=== PATIENT | female | born 1960 | race Caucasian/White ===

== ENCOUNTER → 2020-02-21 | Outpatient (CLI) | payer OTHER ==
[~2020-02-21] MED LIST: ASPI-485 PO; ATOR10TA PO; CHOL200042 PO; LISI10TA2 PO; METO25TA2 PO; METO50TA4 PO; POTA10CA PO; TRAM50TA PO
--- NOTE | 2020-02-21 14:31 | DIREP ---
PROCEDURE:US PELVIS COMPLETE COMPARISON:[facility], US, US PELVIS COMPLETE, 07/04/2019, 10:19 AM. INDICATIONS:RLQ PAIN R10.31 TECHNIQUE:Pelvic ultrasound using transabdominal technique. Endovaginal images were also obtained for better assessment of the uterus and adnexa. FINDINGS: LMP: postmenopausal UTERUS:Size is 7.2 x 2.5 x 4.1 cm. The myometrium is homogeneous. Multiple fibroids are visualized: (1) 1.1 x 0.9 x 1.8 cm, prior size 1.6 x 1.0 x 1.5 cm, (2) 0.9 x 0.6 x 1.0 cm, prior size 1.2 x 0.8 x 1.2 cm, and (3) 1.4 x 1.2 x 1.7 cm, prior size 1.9 x 1.4 x 1.9 cm. Nabothian cysts are noted. ENDOMETRIUM:Thickness is 0.5 cm. RIGHT OVARY:Normal appearance. 1.4 x 0.9 x 1.1 cm. LEFT OVARY:Normal appearance. 1.4 x 0.8 x 0.9 cm. CUL-DE-SAC:Normal. OTHER:Negative. CONCLUSION: 1. Leiomyomatous changes of the uterus similar to prior including an exophytic pedunculated fibroid in the right adnexa versus broad ligament fibroid. 2. Borderline endometrial thickening for a postmenopausal female. Dictated by: [facility] on 02/21/2020 at 02:13 PM bs
== END | disposition home or self-care (01) ==
LOC: RAD 12:13
PROVIDERS: ATTEND Obstetrics & Gynecology
DX: D39.8 Neoplasm of uncertain behavior of other specified female genital organs (principal); R93.89 Abnormal findings on diagnostic imaging of other specified body structures; R10.31 Right lower quadrant pain
CPT/HCPCS: 76830; 76856

== ENCOUNTER → 2020-02-29 | Outpatient (CLI) | payer OTHER ==
--- NOTE | 2020-02-29 16:13 | DIREP ---
PROCEDURE:XR ABDOMEN 2 VIEWS COMPARISON:[facility], CR, XRAY ABDOMEN 2VW, 05/03/2019, 02:31 PM. [facility], CR, XRAY ABDOMEN 2VW, 12/25/2017, 11:43 AM. [facility], CR, XRAY ABDOMEN 2VW, 04/28/2017, 01:37 PM. INDICATIONS:R10.11 RUQ PAIN TECHNIQUE:Flat and upright views of the abdomen are provided. FINDINGS: BOWEL GAS PATTERN:Normal. CALCIFICATIONS:No suspicious calcifications. Pelvic phleboliths noted. LUNG BASES:Clear. BONES:No aggressive osseous lesions. Dextro tilt of the lumbar spine. Degenerative change of the femoral acetabular joints. OTHER:Cholecystectomy clips. A metallic clip overlies the left upper quadrant. CONCLUSION: 1. Normal bowel gas pattern. Dictated by: Loi De Los Santos MD on 02/29/2020 at 04:11 PM
== END | disposition home or self-care (01) ==
LOC: RAD 15:12
PROVIDERS: ATTEND Nurse Practitioner Family
DX: R10.11 Right upper quadrant pain (principal)
CPT/HCPCS: 74019

== ENCOUNTER → 2020-03-07 | Outpatient (CLI) | payer OTHER ==
--- NOTE | 2020-03-07 15:09 | DIREP ---
PROCEDURE:ABDOMINAL ULTRASOUND COMPARISON:[facility], CT, CT CHEST W/CONTRAST, 08/03/2019, 11:17 AM. [facility], US, US ABDOMEN COMPLETE, 04/07/2018, 09:37 AM. [facility], CT, CT ABD/PELVIS W/WO, 03/23/2018, 11:11 AM. [facility], US, US ABDOMEN COMPLETE, 05/13/2017, 09:00 AM. [facility], US, US ABDOMEN LIMITED(SINGLE ORGAN-QUAD), 01/01/2017, 08:04 AM. [facility], US, US ABDOMEN LIMITED(SINGLE ORGAN-QUAD), 12/26/2015, 11:09 AM. INDICATIONS:R10.11 RUQ PAIN TECHNIQUE:High resolution sonographic examination was performed of the abdomen. FINDINGS: PANCREAS:Visualized portions of the pancreatic head, body and tail appear unremarkable. A portion of the pancreatic tail is partially obscured by bowel gas shadowing. LIVER:Enlarged. Increased hepatic echotexture consistent with hepatic steatosis. No focal hepatic lesion is identified. Hepatopetal flow in the portal vein. Normal spectral waveform on the portal vein. GALLBLADDER:The gallbladder is surgically absent. BILIARY:There is no biliary ductal dilatation. RIGHT KIDNEY:No hydronephrosis. A 1.8 x 1.4 x 1.5 cm exophytic cyst is identified in the upper pole. A 2.0 x 1.3 x 1.8 cm exophytic cyst is identified adjacent in the upper pole, (previously 2.2 x 2.1 x 1.9 cm). A 1.8 x 1.3 x 1.1 cm parapelvic cyst or mild intrarenal pelvis dilation is identified. Tissue without increased through transmission was also measured in the interpolar region, favor related to parenchymal lobulation demonstrate previous cross-sectional imaging. LEFT KIDNEY:No hydronephrosis. A 1.2 x 0.9 x 1.2 cm cortical cyst is identified in the lower pole. SPLEEN:Normal. AORTA:The visualized portions appear unremarkable. IVC:Intrahepatic portions unremarkable. OTHER:Negative. No ascites is identified. AORTA (mid):1.6 x 1.6 cm CBD:0.7 cm LIVER:18.6 cm in length. RIGHT KIDNEY:11.6 x 5.5 x 5.5 cm LEFT KIDNEY:10.5 x 7.0 x 4.8 cm SPLEEN:10.9 x 9.1 x 5.5 cm CONCLUSION: 1. Hepatomegaly. Hepatic steatosis. 2. Bilateral renal cysts, benign appearing. Dictated by: JUAN Physician on 03/07/2020 at 12:39 PM ac
== END | disposition home or self-care (01) ==
LOC: RAD 10:04
PROVIDERS: ATTEND Nurse Practitioner Family
DX: K76.0 Fatty (change of) liver, not elsewhere classified (principal); R16.0 Hepatomegaly, not elsewhere classified; N28.1 Cyst of kidney, acquired
CPT/HCPCS: 76700

== ENCOUNTER → 2020-03-13 | Outpatient (CLI) | payer OTHER ==
--- NOTE | 2020-03-13 14:05 | DIREP ---
PROCEDURE:CT ABDOMEN W/ CONTRAST COMPARISON:[facility], CT, CT ABD/PELVIS W/WO, 03/23/2018, 11:11 AM. INDICATIONS:N28.1 CYST OF KIDNEY TECHNIQUE:Axial images were created through the abdomen with non-ionic intravenous contrast material. No oral contrast was administered. Sagittal and coronal reconstructions were performed from source images. FINDINGS: LUNG BASES:Normal. No visible pulmonary or pleural disease. LIVER:Mild diffuse decreased attenuation is again seen throughout the liver. BILIARY:Postcholecystectomy changes are seen. PANCREAS:Normal. No lesion, fluid collection, ductal dilatation, or atrophy. SPLEEN:Normal. No enlargement or focal lesion. ADRENALS:Normal. No mass or enlargement. URINARY TRACT:A 2.7 cm cyst is seen in the upper pole of the right kidney previously measuring 2 cm. An 11 mm cortical cyst is noted posteriorly in the left kidney. Mild cortical scarring is again seen of both kidneys. AORTA/VASCULAR:Vascular calcification is seen of the abdominal aorta without aneurysmal dilatation. RETROPERITONEUM:Normal. No mass or adenopathy. BOWEL/MESENTERY:Normal. There is no intestinal obstruction, free fluid, free air or mesenteric inflammatory changes. ABDOMINAL WALL:Normal. No mass or hernia. PELVIC ORGANS:The pelvis was not imaged. 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 OTHER:Negative. CONCLUSION: 1. There is a 2.7 cm cyst in the upper pole of the right kidney and 11 mm cortical cyst of the left kidney. Mild cortical scarring is again demonstrated of both kidneys. 2. There are findings of mild diffuse steatosis again demonstrated of the liver. Dictated by: on 03/13/2020 at 02:04 PM Ector Ruiz M.D.
== END | disposition home or self-care (01) ==
LOC: RAD 11:39
PROVIDERS: ATTEND Nurse Practitioner Family
DX: N28.1 Cyst of kidney, acquired (principal); I70.0 Atherosclerosis of aorta; M43.17 Spondylolisthesis, lumbosacral region
CPT/HCPCS: 74160; Q9967

== ENCOUNTER → 2020-03-13 | Outpatient (CLI) | payer OTHER ==
--- NOTE | 2020-03-13 10:52 | DIREP ---
PROCEDURE:Digital Screening Mammogram TECHNIQUE:MLO, CC, and XCCL digital images of each breast are provided. Computer Assisted Detection (CAD) was utilized. COMPARISON:[facility], MAMMO BILATERAL SCREENING, 04/07/2018, 11:15 AM. [facility], MAMMO BILATERAL SCREENING, 04/21/2017, 11:19 AM. [facility], MAMMO BILATERAL SCREENING WITH CAD, 04/12/2016, 09:47 AM. [facility], MAMMO DIAGNOSTIC LT, 07/14/2018, 11:06 AM. INDICATIONS:SCREENING BREAST COMPOSITION:There are scattered areas of fibroglandular density. FINDINGS:There are no grouped microcalcifications, masses, or architectural distortions to suggest malignancy. There is no significant change as compared with the previous examination(s). IMPRESSION:No mammographic evidence of malignancy. RECOMMENDATIONS:Routine Screening Mammography per [employer] guidelines. OVERALL FINAL ASSESSMENT:BI-RADS 1 - Negative Mammogram Note: This facility participates in a mammography screening patient reminder system. Dictated by: Gigi Beasley M.D. on 03/13/2020 at 10:49 AM
== END | disposition home or self-care (01) ==
LOC: RAD 10:02
PROVIDERS: ATTEND Obstetrics & Gynecology
DX: Z12.31 Encounter for screening mammogram for malignant neoplasm of breast (principal); R10.31 Right lower quadrant pain
CPT/HCPCS: 77067

== ENCOUNTER → 2020-12-27 | Outpatient (CLI) | payer OTHER ==
[~2020-12-27] MED LIST changes: -LISI10TA2 PO; +LISI10TA20 PO
--- NOTE | 2020-12-28 09:03 | DIREP ---
PROCEDURE:US ABDOMEN LIMITED (SINGLE ORGAN - QUAD) COMPARISON:[facility], US, US ABDOMEN COMPLETE, 05/13/2017, 09:00 AM. [facility], CT, CT ABD/PELVIS W/WO, 02/10/2017, 10:27 AM. US, US ABDOMEN LIMITED(SINGLE ORGAN-QUAD), 01/29/2015, 09:16 AM. [facility], US, US ABDOMEN COMPLETE, 03/07/2020, 10:[address], CT ABD/PELVIS W/ CONTRAST, 07/10/2017, 12:33 PM. [facility], CT, CT ABDOMEN W/CONTRAST, 03/13/2020, 12:02 PM. [facility], US, US ABDOMEN COMPLETE, 04/07/2018, 09:37 AM. [facility], CT, CT ABD/PELVIS W/WO, 03/23/2018, 11:11 AM. [facility], US, US ABDOMEN LIMITED(SINGLE ORGAN-QUAD), 01/01/2017, 08:04 AM. INDICATIONS:K76.0 FATTY LIVER, CHOLECYSTECTOMY TECHNIQUE:High resolution sonographic examination was performed of the abdomen. FINDINGS: PANCREAS:The pancreas is partially obscured by bowel gas shadowing. Visualized portions appear unremarkable. LIVER:Mild diffuse increased echogenicity. No focal hepatic lesion is identified. Hepatopetal flow in the portal vein. GALLBLADDER:The gallbladder is surgically absent. BILIARY:There is no biliary ductal dilatation. RIGHT KIDNEY:No hydronephrosis. Two partially exophytic cysts are identified within the superior pole measuring 1.7 x 2.1 x 1.9 cm (previously 2.0 x 1.3 x 1.8 cm) and 2.4 x 1.4 x 1.8 cm (previously 1.8 x 1.4 x 1.5 cm). Mild intrarenal pelvis dilation or a possible parapelvic cyst is visualized. SPLEEN:Normal. OTHER:A 1.1 x 0.9 x 1.1 cm cortical cyst is incidentally noted within the superior pole of the left kidney. No ascites is identified. CBD:0.4 cm RIGHT KIDNEY: 11.8 x 4.8 x 4.3 cm SPLEEN: 10.1 x 9.0 x 5.3 cm CONCLUSION:Cholecystectomy. Probable fatty liver. Bilateral renal cysts. No other significant findings. Dictated by: HPRA Physician on 12/28/2020 at 08:17 AM ac
== END | disposition home or self-care (01) ==
LOC: RAD 10:54
PROVIDERS: ATTEND Nurse Practitioner Family
DX: N28.1 Cyst of kidney, acquired (principal); K76.0 Fatty (change of) liver, not elsewhere classified; Z90.49 Acquired absence of other specified parts of digestive tract
CPT/HCPCS: 76705

== ENCOUNTER → 2021-02-04 | Outpatient (CLI) | payer OTHER ==
--- NOTE | 2021-02-04 15:17 | DIREP ---
PROCEDURE:XR ABDOMEN 2 VIEWS COMPARISON:[facility], CR, XRAY ABDOMEN 2VW, 02/29/2020, 03:38 PM. [facility], CR, XRAY ABDOMEN 2VW, 05/03/2019, 02:31 PM. [facility], CR, XRAY ABDOMEN 2VW, 12/25/2017, 11:43 AM. INDICATIONS:R10.31 RLQ PAIN TECHNIQUE:Flat and upright views of the abdomen are provided. FINDINGS: BOWEL GAS PATTERN:Visualized bowel loops are nondilated. Relative paucity bowel loops within the right upper quadrant and central abdomen which limits their evaluation. CALCIFICATIONS:None significant. LUNG BASES:Clear. BONES:Degenerative changes lower thoracic lumbar spine. Mild dextrocurvature of the upper lumbar spine. OTHER:Cholecystectomy clips. CONCLUSION: Visualized bowel loops are nondilated. Paucity of bowel gas in the central abdomen and right upper quadrant limits its evaluation. Dictated by: Loi De Los Santos MD on 02/04/2021 at 03:15 PM
== END | disposition home or self-care (01) ==
LOC: RAD 13:50
PROVIDERS: ATTEND Nurse Practitioner Family
DX: R10.31 Right lower quadrant pain (principal)
CPT/HCPCS: 74019